=== PATIENT | female | born 1955 | race Caucasian/White ===

== ENCOUNTER → 2017-06-17 | Outpatient (CLI) | payer OTHER ==
[~2017-06-17] MED LIST: CITALOPRAM HBR20 MG PO; Ecotrin PO; LANSOPRAZOLE30 MG PO; LO-DOSE ASPIRIN81 M1 PO; Melatonin PO; OMEPRAZOLE40 M1 PO; REGLAN10 MG PO; VERAPAMIL HCL40 MG PO; ZANTAC150 MG PO
== END | disposition home or self-care (01) ==
LOC: RES 06-07 11:00
DX: R05 Cough (principal)
CPT/HCPCS: 94060; 94726; 94729

== ENCOUNTER 2017-08-14 14:14 | Emergency (ER) | payer OTHER ==
[~2017-08-14] VITALS: Ht 172.7 cm; Wt 84.0 kg
[2017-08-14 15:19] LABS: BASOPHIL (%) 0.3 % (0-1); EOSINOPHIL (%) 0.8 % (0-5); EOSINOPHIL COUNT 0.1 K/uL (0-0.3); HEMOGLOBIN 14.7 G/DL (11.9-15.5); IMMATURE GRANULOCYTE (%) 0.3 % (0.0-0.7); LYMPHOCYTE (%) 17.7 % (15-42); LYMPHOCYTE COUNT 1.9 K/uL (1.0-2.8); MCH 27.1 PG (29.0-34.0); MCHC 33.4 G/DL (30.0-36.0); MONOCYTE COUNT 0.4 K/uL (0-0.8); NEUTROPHIL (%) 76.9 % (45-76); NEUTROPHIL COUNT 8.2 K/uL (1.8-6.4); PLATELET COUNT 211 K/uL (156-360); RBC DIS.WIDTH-SD 37.9 % (39-53); RED BLOOD COUNT 5.43 M/uL (3.80-5.20); WHITE BLOOD COUNT 10.7 K/uL (4.1-10.2)
[2017-08-14] MEDS ORDERED: VIBRAMYCIN100 MG PO (15:50)
[2017-08-14 16:10] VITALS: BP 140/67
[2017-08-15 10:11] LABS: LYME DISEASE SEROLOGY SCREEN NEGATIVE (NEGATIVE)
== END 2017-08-14 16:32 | disposition home or self-care (01) ==
LOC: EME 14:14
PROVIDERS: Physician Assistant
DX: S61.253A Open bite of left middle finger without damage to nail, initial encounter (principal); W55.01XA Bitten by cat, initial encounter; R21 Rash and other nonspecific skin eruption; D72.829 Elevated white blood cell count, unspecified; Z79.82 Long term (current) use of aspirin; Z87.891 Personal history of nicotine dependence
CPT/HCPCS: 73130; 85025; 86618